=== PATIENT | female | born 1960 | race Caucasian/White ===

== ENCOUNTER 2016-05-25 10:14 | Emergency (ER) | payer SELFPAY ==
[2016-05-25 10:21] VITALS: BP 154/72
--- NOTE | 2016-05-25 10:35 | ER Document Report ---
ED Medical Screen (RME) - General Chief Complaint: Psych Problem Stated Complaint: ANXIETY,CHEST PAIN, POSSIBLE SUICIDAL THOUGHTS Notes: 56-year-old female patient reporting nervous breakdown with suicidal ideation related to problems with spouse. History of previous attempts. I have greeted and performed a rapid initial assessment of this patient. A comprehensive ED assessment and evaluation of the patient, analysis of test results and completion of the medical decision making process will be conducted by additional ED providers. TRAVEL OUTSIDE OF THE [place] IN LAST 30 DAYS: No - Related Data Allergies/Adverse Reactions: codeine Allergy (Verified 05/25/16 10:17) Past Medical History Renal/ Medical History: Denies: Hx Peritoneal Dialysis Physical Exam - Vital signs Vitals: Temp Pulse Resp BP Pulse Ox 98.2 F 88 16 154/72 H 97 05/25/16 10:19 05/25/16 10:19 05/25/16 10:19 05/25/16 10:19 05/25/16 10:19 Course - Vital Signs Vital signs: Temp Pulse Resp BP Pulse Ox 98.2 F 88 16 154/72 H 97 05/25/16 10:19 05/25/16 10:19 05/25/16 10:19 05/25/16 10:19 05/25/16 10:19
[2016-05-25 11:17] LABS: ABSOLUTE BASOPHILS # (AUTO) 0.1 10^3/uL (0.0-0.2); ABSOLUTE EOSINOPHILS # (AUTO) 0.1 10^3/uL (0.0-0.6); ABSOLUTE LYMPHOCYTES (AUTO) 2.3 10^3/uL (0.5-4.7); ABSOLUTE NEUT (AUTO) 9.9 10^3/uL (1.7-8.2); BASOPHILS % (AUTO) 0.7 % (0-2); EOSINOPHILS % (AUTO) 0.8 % (0-6); HEMATOCRIT 44.5 % (36.0-47.0); HEMOGLOBIN 14.9 g/dL (12.0-15.5); HGB HCT DIFFERENCE 0.2; LYMPHOCYTES % (AUTO) 17.3 % (13-45); MEAN CORPUSCULAR HEMOGLOBIN 30.2 pg (27.0-33.4); MEAN CORPUSCULAR HGB CONC 33.5 g/dL (32.0-36.0); MEAN CORPUSCULAR VOLUME 90 fl (80-97); MONOCYTES % (AUTO) 7.2 % (3-13); RED BLOOD COUNT 4.93 10^6/uL (3.72-5.28); WHITE BLOOD COUNT 13.3 10^3/uL (4.0-10.5)
[2016-05-25 11:25] LABS: APPEARANCE,URINE CLEAR; BILIRUBIN,URINE NEGATIVE (NEGATIVE); GLUCOSE, URINE NEGATIVE (NEGATIVE); KETONES,URINE NEGATIVE (NEGATIVE); LEUKOCYTE ESTERASE,URINE NEGATIVE (NEGATIVE); NITRITE,URINE NEGATIVE (NEGATIVE); PROTEIN,URINE NEGATIVE (NEGATIVE); URINE SPECIFIC GRAVITY 1.017; UROBILINOGEN,URINE NEGATIVE mg/dL (<2.0)
--- NOTE | 2016-05-25 11:33 | ER Document Report ---
ED Psych Disorder / Suicide - General Chief Complaint: Psych Problem Stated Complaint: ANXIETY,CHEST PAIN, POSSIBLE SUICIDAL THOUGHTS Notes: Patient says that she is suffering from anxiety and depression over marital discord and feels she may be getting ready to have a nervous breakdown. On April 03, patient discovered that her was having an affair with someone else. Since that time, she's been trying to work it out, but her seems to want to continue with the marriage and the affair. Patient finds herself crying extensively. This morning, she started crying while in the shower and felt she might have a breakdown. She has had some thoughts of suicide in the past, but currently doesn't feel that she would harm herself. She's not been eating well. She's had some nausea. No vomiting or diarrhea. No chest pains. No difficulty breathing. No fevers. Postmenopausal. Hypertension. Hypothyroid. TRAVEL OUTSIDE OF THE [place] IN LAST 30 DAYS: No - Related Data Allergies/Adverse Reactions: codeine Allergy (Verified 05/25/16 10:17) Past Medical History - Social History Smoking Status: Unknown if Ever Smoked Cigarette use (# per day): No Family History: Reviewed & Not Pertinent Patient has suicidal ideation: Yes Patient has homicidal ideation: No - Past Medical History Cardiac Medical History: Reports: Hx Hypertension Endocrine Medical History: Reports: Hx Hypothyroidism Musculoskeltal Medical History: Reports Other - Surgery on both shoulders, one for rotator cuff and 1 for impingement syndrome. Psychiatric Medical History: Reports: Other - Is not under the care of a mental health provider. Past Surgical History: Reports: Hx Orthopedic Surgery - Both shoulders surgery for one for rotator cuff and the other impingement Review of Systems - Review of Systems Notes: REVIEW OF SYSTEMS: CONSTITUTIONAL : Denies fever. EENT: Denies eye, ear, nose or mouth or throat pain or other symptoms. CARDIOVASCULAR: Denies chest pain. RESPIRATORY: Denies cough, chest congestion, or shortness of breath. GASTROINTESTINAL: Denies abdominal pain or nausea, vomiting, or diarrhea. Poor appetite. GENITOURINARY: Denies difficulty or painful urinating, urinary frequency, blood in urine. MUSCULOSKELETAL: Denies back or neck pain. Denies joint pain or swelling. SKIN: Denies rash or skin lesions. NEUROLOGICAL: Denies LOC or altered mental status. Denies headache. Denies sensory loss or motor deficits. Psychological: Anxious, near tears. Denies suicidal intent. ALL OTHER SYSTEMS REVIEWED AND NEGATIVE. Physical Exam - Vital signs Vitals: Temp Pulse Resp BP Pulse Ox 98.2 F 88 16 154/72 H 97 05/25/16 10:19 05/25/16 10:19 05/25/16 10:19 05/25/16 10:19 05/25/16 10:19 Interpretation: Normal - Notes Notes: PHYSICAL EXAMINATION: GENERAL: Well-appearing, in no acute distress. Vital signs are all normal except blood pressure very slightly elevated. HEAD: Atraumatic, normocephalic. EYES: Pupils equal round and reactive to light, extraocular movements intact. ENT: oropharynx clear without exudates. Moist mucous membranes. NECK: Normal range of motion, supple. LUNGS: Breath sounds clear and equal bilaterally. HEART: Regular rate and rhythm without murmurs. ABDOMEN: Soft, nontender. No guarding or rebound. BACK: No tenderness throughout entire back. EXTREMITIES: Normal range of motion without pain. NEUROLOGICAL: Normal speech, normal gait. Normal sensory, motor, and reflex exams. Awake, alert, and oriented x3. Cranial nerves normal. PSYCH: Anxious and appears to be near tears at times. SKIN: Warm, dry, no rashes. Course - Re-evaluation Re-evalutation: 05/25/16 11:34 Mental health will be consult to see this patient. 05/25/16 12:57 Patient was evaluated by mental health who feel that she can be discharged for outpatient follow-up. - Vital Signs Vital signs: Temp Pulse Resp BP Pulse Ox 98.2 F 88 16 154/72 H 97 05/25/16 10:19 05/25/16 10:19 05/25/16 10:19 05/25/16 10:19 05/25/16 10:19 - Laboratory Result Diagrams: 05/25/16 10:55 05/25/16 10:55 Laboratory results interpreted by me: 05/25/16 05/25/16 05/25/16 10:55 10:55 10:55 WBC 13.3 H Absolute Neutrophils 9.9 H Sodium 147.8 H Chloride 108 H BUN 21 H Urine Blood SMALL H Salicylates < 1.0 L Acetaminophen < 10 L 05/25/16 12:56 WBC of 13,300 noted. Patient has no clinical signs of infections. - EKG Interpretation by Me EKG shows normal: Sinus rhythm Rate: Normal Rhythm: NSR Additional EKG results interpreted by me: 05/25/16 11:34 EKG is normal. Discharge - Discharge Clinical Impression: Anxiety, Suicidal ideation Condition: Stable Disposition: HOME, SELF-CARE Additional Instructions: Anxiety The physician feels that some of your health problems are being caused by anxiety. Anxiety affects your health in many ways. Anxiety alone can cause palpitations, sweats, chest pains, abdominal pains, shortness of breath, and headaches. It contributes to ulcer disease, high blood pressure, irritable bowel syndrome, and has been shown to cause flare-ups of many other diseases. Anxiety is not a simple disorder to treat. If the anxiety is due to recent life stresses, you may simply need time to "work through" the changes. If the anxiety is due to an underlying unhappiness with yourself or due to psychiatric disturbance, professional help will be needed. Your physician can refer you for further help if needed. Anti-anxiety medication is occasionally given if the stress is acute or if you are having trouble sleeping. Chronic or frequent use of these medications is not a good idea because the body becomes reliant on it, preventing you from dealing with life's normal stresses. DEPRESSION: Your evaluation reveals that you have mental depression. While symptoms may be vague, they often include disturbance of sleep, fatigue, loss of appetite , and general loss of interest in life. While depression may be a side effect of drugs, or a reaction to a major change in your life, many cases have no known cause. If depression is acute, and related to a major loss in your life, you can expect it to clear completely with time. If you have been depressed a long time , are prone to repeated bouts of depression or low mood, or have been thinking of suicide, get help. Depression can be treated with anti-depressant medication and counselling. Long-term depression will often take a few weeks to clear, even with appropriate medication. Follow-up care is important. SUICIDAL IDEATION: Suicidal ideation is a common medical term for thoughts about suicide, which may be as detailed as a formulated plan, without the suicidal act itself. Although most people who undergo suicidal ideation do not commit suicide, some go on to make suicide attempts. The range of suicidal ideation varies greatly from fleeting to detailed planning, role playing, and unsuccessful attempts. While thoughts about suicide are common, most people do not carry out serious actions to commit suicide. Based upon your evaluation and discussion with you, we do not believe you are currently at risk to act upon your thoughts of suicide. You have agreed to return to the Emergency Department, at any time , if you feel inclined to act upon your suicidal thoughts. FOLLOW-UP CARE: If you have been referred to a physician for follow-up care, call the physician s office for an appointment as you were instructed or within the next two days. If you experience worsening or a significant change in your symptoms, notify the physician immediately or return to the Emergency Department at any time for re-evaluation. Please pursue a Comprehensive Clinical Assessment via [facility] (or another provider of your choice) which will determine services available to you. Please continue to communicate your needs with your [employer] as needed. You have been provided a list of community resources to include Mobile Crisis phone numbers ([facility]) [phone] or ([facility]) . Please return if your symptoms worsen. Referrals: [facility] [Provider Group] - Follow up in 3-5 days
[2016-05-25 11:37] LABS: ALANINE AMINOTRANSFERASE 29 U/L (9-52); ALBUMIN 4.5 g/dL (3.5-5.0); ALKALINE PHOSPHATASE 93 U/L (38-126); ANION GAP 15 (5-19); ASPARTATE AMINO TRANSFERASE 26 U/L (14-36); BILIRUBIN,DIRECT 0.4 mg/dL (0.0-0.4); BLOOD UREA NITROGEN 21 mg/dL (7-20); CARBON DIOXIDE 25 mmol/L (22-30); CHLORIDE 108 mmol/L (98-107); CREATININE RESULT 0.82 mg/dL (0.52-1.25); GLUCOSE 104 mg/dL (75-110); POTASSIUM 4.5 mmol/L (3.6-5.0); SODIUM 147.8 mmol/L (137-145); TOTAL PROTEIN 7.5 g/dL (6.3-8.2)
[2016-05-25 11:38] LABS: ALCOHOL < 10 mg/dL (NONE DETECTED)
[2016-05-25 11:39] LABS: URINE BARBITURATES SCREEN NEGATIVE; URINE METHADONE SCREEN NEGATIVE; URINE OPIATES LOW NEGATIVE; URINE PHENCYCLIDINE SCREEN NEGATIVE
--- NOTE | 2016-05-25 12:49 | ER Document Report ---
ED Psych Disorder / Suicide - General Chief Complaint: Psych Problem Stated Complaint: ANXIETY,CHEST PAIN, POSSIBLE SUICIDAL THOUGHTS Information source: Patient TRAVEL OUTSIDE OF THE [place] IN LAST 30 DAYS: No - HPI Patient complains to provider of: No: Aggression, Agitated, Bizarre behavior, Hallucinating, Homicidal ideation, Homicidal plan, Homicidal attempt, Overdose, Suicidal ideation, Suicidal plan, Suicidal attempt, Self injury, Other Onset: Just prior to arrival Onset was: Sudden Suicide Risk Factors: Depressed Situational problems related to: Spouse Normal mood: No Associated symptoms: Anxious, Decreased appetite, Depressed, Tearful, Unable to sleep Similar symptoms previously: No Recently seen / treated by doctor: No Notes: Patient is a 56 year old female who presents voluntarily seeking assistance for what she has identified as a "nervous breakdown." Patient denied SI and states the precipitating event is discovering her is having an affair. She stated upon arrival that she was in the shower this morning and began crying uncontrollably. Patient noted that she has had thoughts of suicide in the past , but denied any prior attempts. Patient this morning states she is in a precarious position and that she discovered her 's affair April 03 and he has continued the relationship and expends tremendous energy towards that relationship. states this morning she feels like all her emotions came out. She states they have been x37 years and she does not know how to be alone or navigate being alone. Discussed with patient any prior episodes of feeling this level of stress and emotions. Patient identified that her daughter took her own life about 5 years ago, and that was and still can be difficult. Patient states she got through this tragedy with the help of her and talking. Patient states she is Holiness and relies heavily on prayer and her scientology. She states she has reached out to a Clerk Secretary and spoke for about an hour. Patient denies suicidal ideations. Patient states in March she did have thoughts and took a few pills from her metropolol prescription, but not enough to harm her and states she just wanted to go to sleep. Patient states she has adult children and grandchildren who all reside in [place]. She does state that there are significant financial stressors, and that there is no health insurance. Discussed with patient various providers and access to care in this area. Patient states she is agreeable to follow up with an outpatient therapist. Discussed with patient the goal of therapy will be empowerment and assisting her in deciding her course of action, and then also to develop coping skills to cope with her decision/situation (whether she leaves or stays). Patient stats she is agreeable with this and reports she would appreciate counseling. Patient is A&O. Mood is anxious and sad with tearful affect. Patient denies suicidal ideations, intent, plan, or means. Patient denies A/V H; delusions not noted. Thought processes were organized. Conversational speech was WNl for rate , tone, and prosody. Intellectual abilities were estimated within average range. Attention and focus were good. Insight, judgment, and impulse control were fair. Adjustment Disorder with anxious distress Patient is psychiatrically cleared for discharge and recommended to follow up with [facility] for a Comprehensive Clinical Assessment for possible outpatient therapy. Patient adamant that she is not experiencing suicidal ideations and that she heavily relies on her Holiness monica. I consulted with Dr. Juarez in regards to the care and management of this patient. - Related Data Allergies/Adverse Reactions: codeine Allergy (Verified 05/25/16 10:17) Past Medical History - Social History Smoking Status: Never Smoker Cigarette use (# per day): No Chew tobacco use (# tins/day): No Frequency of alcohol use: None Drug Abuse: None Family History: Reviewed & Not Pertinent Patient has suicidal ideation: Yes Patient has homicidal ideation: No - Past Medical History Cardiac Medical History: Reports: Hx Hypertension Endocrine Medical History: Reports: Hx Hypothyroidism Renal/ Medical History: Denies: Hx Peritoneal Dialysis Musculoskeltal Medical History: Reports Other - Surgery on both shoulders, one for rotator cuff and 1 for impingement syndrome. Psychiatric Medical History: Reports: Hx Anxiety, Hx Depression, Other - Is not under the care of a mental health provider. Past Surgical History: Reports: Hx Orthopedic Surgery - Both shoulders surgery for one for rotator cuff and the other impingement Physical Exam - Vital signs Vitals: Temp Pulse Resp BP Pulse Ox 98.2 F 88 16 154/72 H 97 05/25/16 10:19 05/25/16 10:19 05/25/16 10:19 05/25/16 10:19 05/25/16 10:19 Course - Vital Signs Vital signs: Temp Pulse Resp BP Pulse Ox 98.2 F 88 16 154/72 H 97 05/25/16 10:19 05/25/16 10:19 05/25/16 10:19 05/25/16 10:19 05/25/16 10:19 - Laboratory Result Diagrams: 05/25/16 10:55 05/25/16 10:55 Laboratory results interpreted by me: 05/25/16 05/25/16 05/25/16 10:55 10:55 10:55 WBC 13.3 H Absolute Neutrophils 9.9 H Sodium 147.8 H Chloride 108 H BUN 21 H Urine Blood SMALL H Salicylates < 1.0 L Acetaminophen < 10 L Discharge - Discharge Condition: Good Disposition: HOME, SELF-CARE Instructions: Depression ([facility]), Anxiety ([facility]) Additional Instructions: Please pursue a Comprehensive Clinical Assessment via [facility] (or another provider of your choice) which will determine services available to you. Please continue to communicate your needs with your Clerk Secretary as needed. You have been provided a list of community resources to include Mobile Crisis phone numbers ([facility]) [phone] or ([facility]) . Please return if your symptoms worsen.
--- NOTE | 2016-05-25 17:32 | EKG REPORT ---
SEVERITY:- BORDERLINE ECG - SINUS RHYTHM BORDERLINE R WAVE PROGRESSION, ANTERIOR LEADS : Confirmed by: Sanjiv Tiwari MD 25-May-2016 17:32:21
== END 2016-05-25 13:11 | disposition home or self-care (01) ==
LOC: ER 10:14
DX: R45.851 Suicidal ideations (principal); F41.9 Anxiety disorder, unspecified; R07.9 Chest pain, unspecified
CPT/HCPCS: 36415; 80053; 80307; 81001; 85025; 93005; 93010; 99284